=== PATIENT | female | born 1975 | race Caucasian/White ===

== ENCOUNTER 2017-04-06 15:50 | Emergency (ER) | payer MEDICAID ==
[~2017-04-06] VITALS: Ht 167.6 cm; Wt 85.3 kg
[2017-04-06 16:15] VITALS: Ht 167.6 cm; Wt 85.3 kg
[2017-04-06 21:27] VITALS: BP 131/79
== END 2017-04-06 21:27 | disposition home or self-care (01) ==
LOC: ED 15:50
DX: R51 Headache (principal)
CPT/HCPCS: J1885; Q0162

== ENCOUNTER 2017-10-18 19:52 | Emergency (ER) | payer MEDICAID ==
[2017-10-18 23:01] VITALS: BP 124/81
== END 2017-10-18 23:01 | disposition home or self-care (01) ==
LOC: ED 19:52
DX: G44.009 Cluster headache syndrome, unspecified, not intractable (principal)
CPT/HCPCS: J1885; J3030

== ENCOUNTER 2018-06-28 16:16 | Emergency (ER) | payer MEDICAID ==
[~2018-06-28] VITALS: Ht 157.5 cm; Wt 86.2 kg
[2018-06-28 16:23] VITALS: Ht 157.5 cm; Wt 86.2 kg
[2018-06-28 18:09] LABS: BASOPHIL % 0.5 % (0-2); PLATELET COUNT 249 x10^3mcL (130-400); RED CELL DISTRIBUTION WIDTH 13.5 % (11.5-14.5)
[2018-06-28 18:40] LABS: CALCIUM 8.7 mg/dL (8.5-10.1); CARBON DIOXIDE 26.5 mmol/L (21-32); CHLORIDE SERUM 104 mmol/L (98-107); CREATININE SERUM 0.6 mg/dL (0.6-1.0); GFR1 > 60 mL/min; GLUCOSE SERUM 92 mg/dL (74-106); POTASSIUM SERUM 3.3 mmol/L (3.5-5.1); SODIUM SERUM 140 mmol/L (136-145)
[2018-06-28 18:46] LABS: ALBUMIN 4.1 g/dL (3.4-5.0); ALKALINE PHOSPHATASE 58 U/L (46-116); ALT/SGPT 36 U/L (14-59); BILIRUBIN TOTAL 0.3 mg/dL (0.20-1.00); TOTAL PROTEIN, SERUM 7.9 g/dL (6.4-8.2)
[2018-06-28 19:00] LABS: AST/SGOT 16 U/L (15-37)
[2018-06-28 21:36] VITALS: BP 114/73
== END 2018-06-28 21:36 | disposition home or self-care (01) ==
LOC: ED 16:16
PROVIDERS: Emergency Medicine
DX: R42 Dizziness and giddiness (principal); M79.601 Pain in right arm; M25.531 Pain in right wrist; M25.521 Pain in right elbow
CPT/HCPCS: 36415; 82962; J8597

== ENCOUNTER 2019-04-19 14:54 | Emergency (ER) | payer MEDICAID ==
[~2019-04-19] VITALS: Ht 162.6 cm; Wt 89.4 kg
[2019-04-19 15:10] VITALS: Ht 162.6 cm; Wt 89.4 kg
[2019-04-19 18:40] VITALS: BP 103/73
== END 2019-04-19 18:41 | disposition home or self-care (01) ==
LOC: ED 14:54
DX: J11.1 Influenza due to unidentified influenza virus with other respiratory manifestations (principal); J40 Bronchitis, not specified as acute or chronic
CPT/HCPCS: 87804

== ENCOUNTER 2019-12-08 11:52 | Emergency (ER) | payer MEDICAID ==
[~2019-12-08] VITALS: Ht 165.1 cm; Wt 77.6 kg
[2019-12-08 12:04] VITALS: Ht 165.1 cm; Wt 77.6 kg
[2019-12-08 12:49] LABS: BASOPHIL % 0.4 % (0-2); PLATELET COUNT 229 x10^3mcL (130-400); RED CELL DISTRIBUTION WIDTH 12.7 % (11.5-14.5)
[2019-12-08 13:00] LABS: CALCIUM 8.6 mg/dL (8.5-10.1); CARBON DIOXIDE 28.1 mmol/L (21-32); CHLORIDE SERUM 106 mmol/L (98-107); CREATININE SERUM 0.7 mg/dL (0.6-1.0); GFR1 > 60 mL/min; GLUCOSE SERUM 103 mg/dL (74-106); POTASSIUM SERUM 3.8 mmol/L (3.5-5.1); SODIUM SERUM 140 mmol/L (136-145)
[2019-12-08 13:03] LABS: UA SPECIFIC GRAVITY >=1.030 (1.005-1.035); microscopic required? YES; urine erythrocyte NEGATIVE (NEGATIVE)
[2019-12-08 13:12] LABS: ALBUMIN 3.9 g/dL (3.4-5.0); ALKALINE PHOSPHATASE 55 U/L (46-116); ALT/SGPT 46 U/L (14-59); AST/SGOT 18 U/L (15-37); BILIRUBIN TOTAL 0.48 mg/dL (0.20-1.00); HDL CHOLESTEROL 41 mg/dL (40-60); TOTAL PROTEIN, SERUM 7.2 g/dL (6.4-8.2); TRIGLYCERIDES 88 mg/dL (<150)
[2019-12-08 13:15] LABS: CHOLESTEROL 132 mg/dL (<200); CHOLESTEROL/HDL RATIO 3.2
[2019-12-08 14:36] VITALS: BP 110/66
== END 2019-12-08 14:57 | disposition home or self-care (01) ==
LOC: ED 11:52
PROVIDERS: Specialist
DX: D25.9 Leiomyoma of uterus, unspecified (principal); N39.0 Urinary tract infection, site not specified
CPT/HCPCS: J1885; J7030; Q0092